=== PATIENT | female | born 1995 | race Caucasian/White ===

== ENCOUNTER → 2020-03-19 | Outpatient (CLI) | payer BC | LOC: COL.RAD 07:51 | DX: N13.30 Unspecified hydronephrosis (principal); Z87.440 Personal history of urinary (tract) infections ==

== ENCOUNTER → 2020-05-28 | Outpatient (CLI) | payer BC | LOC: COL.RAD 06:51 | DX: N13.30 Unspecified hydronephrosis (principal); Z87.440 Personal history of urinary (tract) infections | CPT/HCPCS: Q9967 ==